=== PATIENT | male | born 1995 | race Caucasian/White ===

== ENCOUNTER 2019-07-10 20:26 | Emergency (ER) | payer BC ==
[2019-07-10 20:32] VITALS: BP 141/87; PULSE 74; RESP 18; TEMP 97.9
[2019-07-10] MEDS ORDERED: DIPH,PERTUS(ACELL)TETVAC-LF 0.5 ML VIAL IM ONE (20:35)
[2019-07-10] MEDS ORDERED: CEPHALEXIN 500MG STARTER PACK 4 CAP BTL PO STA (20:36)
--- NOTE | 2019-07-10 20:38 | ED ---
Wound/Laceration HPI - General Chief Complaint: Wound/Laceration Stated Complaint: finger laceration Time Seen by Provider: 07/10/19 20:33 Source: patient, RN notes reviewed Mode of arrival: ambulatory Limitations: no limitations - History of Present Illness Initial Comments: 24-year-old male presents emergency from chief complaint infected wound to his right hand middle finger. Patient states that he cut a couple days ago. Patient states red and swollen. He is unsure when his last tetanus was. Patient has full range of motion. Patient states that was a clean cut at the time but states he dirt into the wound. Patient is right-hand dominant patient offers no complaints. - Related Data Previous Rx's Medication Instructions Recorded Cephalexin [Keflex] 500 mg PO Q6HR #40 cap 07/10/19 Allergies Allergy/AdvReac Type Severity Reaction Status Date / Time No Known Allergies Allergy Verified 07/10/19 20:31 Review of Systems ROS Statement: Those systems with pertinent positive or pertinent negative responses have been documented in the HPI. ROS Other: All systems not noted in ROS Statement are negative. Past Medical History Past Medical History: No Reported History History of Any Multi-Drug Resistant Organisms: None Reported Past Surgical History: Hernia Repair Past Psychological History: No Psychological Hx Reported Smoking Status: Never smoker Past Alcohol Use History: None Reported Past Drug Use History: None Reported General Exam Limitations: no limitations General appearance: alert, in no apparent distress Head exam: Present: atraumatic, normocephalic, normal inspection Neck exam: Present: normal inspection. Absent: tenderness, meningismus, lymphadenopathy Respiratory exam: Present: normal lung sounds bilaterally. Absent: respiratory distress, wheezes, rales, rhonchi, stridor Cardiovascular Exam: Present: regular rate, normal rhythm, normal heart sounds. Absent: systolic murmur, diastolic murmur, rubs, gallop, clicks Extremities exam: Present: other (Right hand third digit there is healing laceration over the PIP, mild erythema from range of motion neurovascular intact) Course Vital Signs 07/10/19 20:29 Temperature 97.9 F Pulse Rate 74 Respiratory 18 Rate Blood Pressure 141/87 O2 Sat by Pulse 98 Oximetry Medical Decision Making - Medical Decision Making Patient's tetanus is updated, patient has infected laceration which is closing. Did recommend x-ray patient declines patient was placed on antibiotics. Disposition Clinical Impression: Infected finger laceration Disposition: HOME SELF-CARE Condition: Stable Instructions (If sedation given, give patient instructions): Laceration (ED) Additional Instructions: Please return to the Emergency Department if symptoms worsen or any other concerns. Prescriptions: Cephalexin [Keflex] 500 mg PO Q6HR #40 cap Is patient prescribed a controlled substance at d/c from ED?: No Referrals: None,Stated [Primary Care Provider] - 1-2 days
== END 2019-07-10 21:01 | disposition home or self-care (01) ==
LOC: EC 20:26
DX: S61.212A Laceration without foreign body of right middle finger without damage to nail, initial encounter (principal); L08.9 Local infection of the skin and subcutaneous tissue, unspecified; W45.8XXA Other foreign body or object entering through skin, initial encounter; Z23 Encounter for immunization
CPT/HCPCS: 90471; 90715; 99282

== ENCOUNTER → 2022-12-02 | Outpatient (CLI) | payer BC ==
[2022-12-02 15:19] LABS: Basophils # (A) 0.04 X 10*3/uL (0.00-0.10); Basophils % (A) 0.5 %; Eosinophils # (A) 0.31 X 10*3/uL (0.04-0.35); Eosinophils % (A) 4.1 %; HCT 48.1 % (39.6-50.0); HGB 16.4 g/dL (13.0-17.0); Immature Grans, Automated 0.3 %; Lymphocytes # (A) 1.92 X 10*3/uL (0.90-5.00); Lymphocytes % (A) 25.7 %; MCH 29.1 pg (27.0-32.0); MCHC 34.1 g/dL (32.0-37.0); MCV 85.4 fL (80.0-97.0); Mean Platelet Volume 9.6 fL (9.5-12.2); NRBC Per 100 WBC 0 /100 WBCS (0.0-0.0); Neutrophils # (A) 4.59 X 10*3/uL (1.80-7.70); Neutrophils % (A) 61.4 %; Platelet Count 265 X 10*3/uL (140-440); RBC 5.63 X 10*6/uL (4.40-5.60); RDW 12.6 % (11.5-14.5); WBC 7.48 X 10*3/uL (4.50-10.00)
[2022-12-02 16:20] LABS: ALT 24 U/L (10-49); AST 17 U/L (14-35); African American GFR (CKD) 137.1 (60.0-200.0); Albumin 4.7 g/dL (3.8-4.9); Albumin/Globulin Ratio 2.04 (1.60-3.17); Alkaline Phosphatase 73 U/L (41-126); BUN/Creat Ratio 9.44 Ratio (12.00-20.00); Blood Urea Nitrogen 8.5 mg/dL (9.0-27.0); Calcium 9.5 mg/dL (8.7-10.3); Chloride 103 mmol/L (96-109); Chol/HDL Ratio 2.51 Ratio; Globulin 2.3 g/dL (1.6-3.3); Glucose 82 mg/dL (70-110); LDL Cholesterol,Calculated 56.1 mg/dL (0.0-131.0); Non-African American GFR(CKD) 118.3 (60.0-200.0); Potassium 4.3 mmol/L (3.5-5.5); Sodium 140 mmol/L (135-145); Uric Acid 6.7 mg/dL (3.7-8.7)
--- NOTE | 2022-12-04 09:19 | XR ---
EXAMINATION TYPE: XR toes bilateral, XR foot complete bilateral DATE OF EXAM: 12/02/2022 10:03 AM INDICATION: Patient age:Male; 27 years old; Reason for study: PAIN; COMPARISON: None TECHNIQUE: The bilateral foot was examined in the AP, oblique, and lateral projections. Bilateral first toes evaluated in frontal lateral and oblique FINDINGS: No evidence of any acute osseous pathology. No evidence of soft tissue swelling. Joints are preserve d. The first digit bilaterally does not demonstrate bony abnormality. No evidence of fracture. There is minimal degeneration if any at all of the interphalangeal joints. IMPRESSION: 1. No evidence of acute fracture. 2. No radiographic evidence for abnormally involving the great toe bilaterally to explain the patien t's pain. Consider MRI as clinically warranted.
== END | disposition home or self-care (01) ==
LOC: LABWHC1 08:38
PROVIDERS: ATTEND Internal Medicine
DX: Z00.00 Encounter for general adult medical examination without abnormal findings (principal); Z11.59 Encounter for screening for other viral diseases; M79.671 Pain in right foot; M79.676 Pain in unspecified toe(s)
CPT/HCPCS: 36415; 80053; 80061; 84443; 84550; 85025; 87522

== ENCOUNTER → 2023-01-04 | Outpatient (CLI) | payer BC ==
--- NOTE | 2023-01-04 09:14 | US ---
EXAMINATION TYPE: US gallbladder DATE OF EXAM: 01/04/2023 COMPARISON: NONE CLINICAL INDICATION: Male, 27 years old with history of E80.6OTHER DISORDERS OF BILIRUBIN METABOLISM; Hyperbilirubinemia. TECHNIQUE: Multiple sonographic images of the right upper quadrant are obtained. FINDINGS: EXAM MEASUREMENTS: Liver Length: 12.7 cm Gallbladder Wall: 0.25 cm CBD: 0.34 cm Right Kidney: 11.2 x 4.9 x 4.4 cm [employer] NOTES: Limited due to gas. Pancreas: Not well seen. Liver: No abnormalities seen. Gallbladder: Hyperechoic area seen near the gallbladder neck that appears to be attached to the g allbladder wall: 0.5 x 0.3 x 0.4 cm. Evidence for sonographic Ch's sign: No CBD: Appears wnl Right Kidney: No hydronephrosis or masses seen IMPRESSION: 1. Possible gallbladder neck polyp measuring up to 5 mm. Short-term follow-up in 6 months to ensure stability recommended. 2. No evidence for acute process.
== END | disposition home or self-care (01) ==
LOC: RADUSWWP 07:33
PROVIDERS: ATTEND Internal Medicine
DX: E80.6 Other disorders of bilirubin metabolism (principal)
CPT/HCPCS: 76705